=== PATIENT | female | born 1965 | race Caucasian/White ===

== ENCOUNTER 2017-12-22 10:07 | Emergency (ER) | payer BC, MEDICARE ==
[2017-12-22 10:17] VITALS: TEMP 97.9
--- NOTE | 2017-12-22 10:31 | ED.PDOC ---
History of Present Illness - General Chief Complaint: Back Pain or Injury Stated Complaint: back and head pain Time Seen by Provider: 12/22/17 10:26 - History of Present Illness Initial Comments: patient comes in today from the senior living after a fall. She was in the shower and patient states that she fell to the floor. The nurse's aide stated she gently laid down the patient but the patient states she fell. Her hair was in a scrunchy at the base of her head and it did pull when she fell. She did hit the back of her head hurting her head and the midportion of her thoracic spine. She had no loss of consciousness, no vision change, no emesis. Patient is on Lovenox. The patient has muscular dystrophy and is vent dependent and has a feeding tube. Beyond that she does not have other medical problems per patient. Patient can communicate well and is alert and oriented to person place and time. Timing/Duration: 1/2 hour Quality/Severity: moderate Back Pain Location: T-spine Method of Injury/Prior Injury: fell Improving Factors: nothing Worsening Factors: nothing Allergies/Adverse Reactions: Allergies Cephalexin Allergy (Verified 12/22/17 10:27) Erythromycin Allergy (Verified 12/22/17 10:27) Morphine Allergy (Verified 12/22/17 10:27) Home Medications: Ambulatory Orders Acetaminophen [Acetaminophen ER] 650 mg PEG Q4H PRN 12/22/17 Aspirin [Aspirin Adult Low Dose] 81 mg PO DAILY 12/22/17 Banana Flakes [Banatrol Plus] 1 marialuisa PEG TID 12/22/17 Chlorhexidine Gluconate (Mouth [Chlorhexidine Gluconate] 0.12 % MT Q6H 12/22/17 Docusate Sodium 100 mg PO BID 12/22/17 Duloxetine HCl 60 mg PEG DAILY 12/22/17 Fluticasone Propionate (Nasal) [Flonase Allergy Relief] 50 mcg NA DAILY Haloperidol [Haldol] 5 mg PEG BEDTIME 12/22/17 Haloperidol [Haldol] 7.5 mg PEG DAILY 12/22/17 Ipratropium/Albuterol [Duoneb] 3 ml NEB Q4H PRN 12/22/17 Ipratropium/Albuterol [Duoneb] 3 ml NEB TID 12/22/17 Lactulose [Kristalose] 20 gm PEG DAILY 12/22/17 Metoclopramide HCl 5 mg PEG Q8H PRN 12/22/17 Midodrine HCl 5 mg PEG TID 12/22/17 Nystatin (Topical) [Nystatin] 100,000 unit EX BID PRN 12/22/17 Ondansetron [Zofran Odt] 4 mg PO Q6H PRN 12/22/17 Pantoprazole Suspension [Protonix] 40 mg PEG BID 12/22/17 Phenol Throat Raynham [Chloraseptic Throat Raynham] 1.42 spray MT QID PRN 12/22/17 Potassium Chloride Elixir [Kaochlor Liquid] 15 ml PEG DAILY 12/22/17 Promethazine HCl 25 mg PO Q4H PRN 12/22/17 Scopolamine Patch 1.5MG [Transderm-Scop Patch] 1 ea TD Q72H 12/22/17 Review of Systems - Review of Systems Constitutional: States: no symptoms reported, weakness. Denies: fever EENTM: States: no symptoms reported Respiratory: States: no symptoms reported Cardiology: States: no symptoms reported Gastrointestinal/Abdominal: States: no symptoms reported Genitourinary: States: no symptoms reported Musculoskeletal: States: see HPI Past Medical History (General) - Patient Medical History Hx Stroke: No Hx Congestive Heart Failure: Yes Hx Diabetes: Yes Hx Other PMH: Yes - Muscular dystrophy Surgical History: cholecystectomy, pacemaker, Hysterectomy - Vaccination History Hx Influenza Vaccination: - unknown Hx Pneumococcal Vaccination: - unknown - Social History Hx Tobacco Use: Yes Hx Depression: Yes - Activities of Daily Living [facility] applicable[facility] [place] Family Medical History - Family History Mother Family History: Unknown Living Status: Unknown Physical Exam - Physical Exam General Appearance: Alert, No apparent distress Eyes, Ears, Nose, Throat Exam: PERRL/EOMI, TMs normal, pharynx normal, other - Head has bald raw area on the middle of her scalp where where her pain is, scrunchy was found under her in the portion of her back that huts with a large portion of hair that pulled out Neck Exam: non-tender, full range of motion, normal alignment, normal inspection , other - Tracheostomy tube in place on vent Cardiovascular/Respiratory: regular rate, rhythm, no M/R/G, normal peripheral pulses, no JVD, normal breath sounds, no respiratory distress Gastrointestinal/Abdominal: normal bowel sounds, non tender, soft, no organomegaly Back Exam: other - Tenderness at T7-9 with no ulcers, bruising, or gross deformity. Hair scrunchy found at that area Extremity Exam: no evidence of injury Neurologic: alert, oriented x 3 Progress - Progress Progress: 12/22/17 11:36 Patient Name: BRANDAN RIBEIRO Gender: Female Date of : 1965 Referring Physician: VICTORINA WHEELER Organization: [facility] Accession Number: [id number] Requested Date: December 22, 2017 10:27 Report Status: Final Requested Procedure: 1 Procedure Description: Head Modality: CT Findings Reporting MD: Piyush Barrera MD: Not available Dictation Time: Assembly Manager: Not available Vp Cardiovascular Date: EXAM DESCRIPTION: Head: Computed Tomography. CLINICAL HISTORY: fall on Lovenox with pain COMPARISON: Noncontrast CT scan of the thoracic spine on the same visit. TECHNIQUE: Non-helical axial scans through the skull and brain, at 5.0 mm intervals, non-contrast. Coronal and sagittal 2.0 mm reconstructions. Axial 2.5 mm reconstructions. Total Exam DLP: 967.47 mGy-cm. This exam was performed according to our departmental dose-optimization program which includes automated exposure control, adjustment of the mA and/or kV according to patient size and/or use of iterative reconstruction technique; to reduce radiation dose to as low as reasonably achievable (ALARA). FINDINGS: Radiodense extra axial mass, partially calcified, 1.7 AP x1.3 craniocaudal x 1.4 cm transverse with focal mass effect on the vertex of the right parietal lobe in a parasagittal location. Consistent with a partially calcified meningioma. No hemorrhage, no other mass-effect, and no midline shift. Minimum bilateral periventricular white matter low-density also involving the subcortical white matter of the frontal occipital and temporal lobes. No abnormal radiodense material in the brain parenchyma. Vascular calcifications anterior; physiologic calcifications in the pineal gland and choroid plexus. No effacement or displacement of the ventricles, CSF spaces, or other subdural spaces (except by meningioma). No extra axial fluid collection or hemorrhage. No gross abnormalities of the bony calvarium. Chronic mucosal thickening in the sphenoid air cells. Mastoid air cells are unremarkable. IMPRESSION: 1. No intra-axial hemorrhage, no intra-axial mass effect, no midline shift. No extra-axial hemorrhage. 1.7 cm partially calcified extra-axial mass in the parasagittal right parietal lobe impressing on the cortical sulci, most likely a meningioma. No other extra-axial or intra-axial masses. Radiology [facility] [address] [place] [address], [address] [place], [place] T [phone] F [phone] Probity - Report exported on Dec 22, 2017 11:35:52 -[id number] - Page 2 of 2 2. Periventricular leukomalacia and subcortical white matter low-density in the frontal occipital and temporal lobes. This is prominent for patient's age and could represent advanced cerebral microvascular disease or early white matter disease from migraine headaches, demyelination process, inflammation, or vasculitis. Correlate with clinical history. Comparison to previous brain imaging studies from other institutions would be helpful. 3. consider NON-EMERGENT MRI scan of the brain with diffusion imaging, without and with gadolinium IV contrast. 12/22/17 11:47 Patient Name: BRANDAN RIBEIRO Gender: Female Date of : 1965 Referring Physician: VICTORINA WHEELER Organization: [facility] Accession Number: [id number] Requested Date: December 22, 2017 10:27 Report Status: Final Requested Procedure: 1 Procedure Description: Thoracic Spine Modality: CT Findings Reporting MD: Piyush Barrera Fellow MD: Not available Dictation Time: Assembly Manager: Not available Vp Cardiovascular Date: EXAM DESCRIPTION: Thoracic Spine: Computed Tomography. CLINICAL HISTORY: fall on Lovenox with pain COMPARISON: CT scan head without IV contrast on this visit. TECHNIQUE: Spiral, axial 5.0 mm scans through the cervical spine without contrast. Bone and soft tissue algorithms. Coronal and sagittal 2.0 mm Reconstructions. Bone algorithms. Total Exam DLP: 857.36 mGy-cm. This exam was performed according to our departmental dose-optimization program which includes automated exposure control, adjustment of the mA and/or kV according to patient size and/or use of iterative reconstruction technique; to reduce radiation dose to as low as reasonably achievable (ALARA). FINDINGS: No compression fractures at any level. Trace retrolisthesis T10-11 and trace anterolisthesis T11-12. Posterior elements appear intact. No fractures of the posterior medial proximal ribs bilaterally. No significant paraspinal mass at any level. No canal or foraminal stenosis. No significant facet arthrosis more displacement at any level bilaterally. Disc space loss at T9-10 with anterior spurs. Similar findings at T11-12 and T6-7. Anterior spurs at other levels. Tracheostomy catheter customary location. Pacing leads in the right atrium and right ventricle. Marked bilateral consolidation/atelectasis bilateral paraspinal lungs from the hilum inferiorly. Also bilateral pleural thickening. No pneumothorax. No pneumomediastinum. IMPRESSION: 1. No acute thoracic spine abnormality. 2. Significant bilateral medial lower lobe atelectasis or pneumonia with pleural thickening. This is somewhat exaggerated due to lungs in expiratory phase during the scan. Tracheostomy cuff into in customary location. Pacing leads in customary location Departure - Departure Clinical Impression: Cerebral mass Contusion of head Qualifiers: Encounter type: initial encounter Contusion of head detail: scalp Qualified Code(s): S00.03XA - Contusion of scalp, initial encounter Disposition: Discharge to SNF Departure Forms: ED Discharge - Pt. Copy, Patient Portal Self Enrollment Instructions: DI for Low Back Pain Diet: resume usual diet Referrals: JAYA REDD [Primary Care Provider] - 1-2 Weeks Home Medications: Ambulatory Orders Acetaminophen [Acetaminophen ER] 650 mg PEG Q4H PRN 12/22/17 Aspirin [Aspirin Adult Low Dose] 81 mg PO DAILY 12/22/17 Banana Flakes [Banatrol Plus] 1 marialuisa PEG TID 12/22/17 Chlorhexidine Gluconate (Mouth [Chlorhexidine Gluconate] 0.12 % MT Q6H 12/22/17 Docusate Sodium 100 mg PO BID 12/22/17 Duloxetine HCl 60 mg PEG DAILY 12/22/17 Fluticasone Propionate (Nasal) [Flonase Allergy Relief] 50 mcg NA DAILY Haloperidol [Haldol] 5 mg PEG BEDTIME 12/22/17 Haloperidol [Haldol] 7.5 mg PEG DAILY 12/22/17 Ipratropium/Albuterol [Duoneb] 3 ml NEB Q4H PRN 12/22/17 Ipratropium/Albuterol [Duoneb] 3 ml NEB TID 12/22/17 Lactulose [Kristalose] 20 gm PEG DAILY 12/22/17 Metoclopramide HCl 5 mg PEG Q8H PRN 12/22/17 Midodrine HCl 5 mg PEG TID 12/22/17 Nystatin (Topical) [Nystatin] 100,000 unit EX BID PRN 12/22/17 Ondansetron [Zofran Odt] 4 mg PO Q6H PRN 12/22/17 Pantoprazole Suspension [Protonix] 40 mg PEG BID 12/22/17 Phenol Throat Raynham [Chloraseptic Throat Raynham] 1.42 spray MT QID PRN 12/22/17 Potassium Chloride Elixir [Kaochlor Liquid] 15 ml PEG DAILY 12/22/17 Promethazine HCl 25 mg PO Q4H PRN 12/22/17 Scopolamine Patch 1.5MG [Transderm-Scop Patch] 1 ea TD Q72H 12/22/17 Additional Instructions: patient has raw area to the scalp were hair was pulled on falling, monitor area for ulceration. 1.7 cm mass most likely meningioma will need a follow up MRI or Neuro consult
--- NOTE | 2017-12-22 11:34 | CT ---
EXAM DESCRIPTION: Head: Computed Tomography. CLINICAL HISTORY: fall on Lovenox with pain COMPARISON: Noncontrast CT scan of the thoracic spine on the same visit. TECHNIQUE: Non-helical axial scans through the skull and brain, at 5.0 mm intervals, non-contrast. Coronal and sagittal 2.0 mm reconstructions. Axial 2.5 mm reconstructions. Total Exam DLP: 967.47 mGy-cm. This exam was performed according to our departmental dose-optimization program which includes automated exposure control, adjustment of the mA and/or kV according to patient size and/or use of iterative reconstruction technique; to reduce radiation dose to as low as reasonably achievable (ALARA). FINDINGS: Radiodense extra axial mass, partially calcified, 1.7 AP x1.3 craniocaudal x 1.4 cm transverse with focal mass effect on the vertex of the right parietal lobe in a parasagittal location. Consistent with a partially calcified meningioma. No hemorrhage, no other mass-effect, and no midline shift. Minimum bilateral periventricular white matter low-density also involving the subcortical white matter of the frontal occipital and temporal lobes. No abnormal radiodense material in the brain parenchyma. Vascular calcifications anterior; physiologic calcifications in the pineal gland and choroid plexus. No effacement or displacement of the ventricles, CSF spaces, or other subdural spaces (except by meningioma). No extra axial fluid collection or hemorrhage. No gross abnormalities of the bony calvarium. Chronic mucosal thickening in the sphenoid air cells. Mastoid air cells are unremarkable. IMPRESSION: 1. No intra-axial hemorrhage, no intra-axial mass effect, no midline shift. No extra-axial hemorrhage. 1.7 cm partially calcified extra-axial mass in the parasagittal right parietal lobe impressing on the cortical sulci, most likely a meningioma. No other extra-axial or intra-axial masses. 2. Periventricular leukomalacia and subcortical white matter low-density in the frontal occipital and temporal lobes. This is prominent for patient's age and could represent advanced cerebral microvascular disease or early white matter disease from migraine headaches, demyelination process, inflammation, or vasculitis. Correlate with clinical history. Comparison to previous brain imaging studies from other institutions would be helpful. 3. consider NON-EMERGENT MRI scan of the brain with diffusion imaging, without and with gadolinium IV contrast. Electronically signed by: Piyush Barrera MD 12/22/2017 11:33 AM CDT
--- NOTE | 2017-12-22 11:46 | CT ---
EXAM DESCRIPTION: Thoracic Spine: Computed Tomography. CLINICAL HISTORY: fall on Lovenox with pain COMPARISON: CT scan head without IV contrast on this visit. TECHNIQUE: Spiral, axial 5.0 mm scans through the cervical spine without contrast. Bone and soft tissue algorithms. Coronal and sagittal 2.0 mm Reconstructions. Bone algorithms. Total Exam DLP: 857.36 mGy-cm. This exam was performed according to our departmental dose-optimization program which includes automated exposure control, adjustment of the mA and/or kV according to patient size and/or use of iterative reconstruction technique; to reduce radiation dose to as low as reasonably achievable (ALARA). FINDINGS: No compression fractures at any level. Trace retrolisthesis T10-11 and trace anterolisthesis T11-12. Posterior elements appear intact. No fractures of the posterior medial proximal ribs bilaterally. No significant paraspinal mass at any level. No canal or foraminal stenosis. No significant facet arthrosis more displacement at any level bilaterally. Disc space loss at T9-10 with anterior spurs. Similar findings at T11-12 and T6-7. Anterior spurs at other levels. Tracheostomy catheter customary location. Pacing leads in the right atrium and right ventricle. Marked bilateral consolidation/atelectasis bilateral paraspinal lungs from the hilum inferiorly. Also bilateral pleural thickening. No pneumothorax. No pneumomediastinum. IMPRESSION: 1. No acute thoracic spine abnormality. 2. Significant bilateral medial lower lobe atelectasis or pneumonia with pleural thickening. This is somewhat exaggerated due to lungs in expiratory phase during the scan. Tracheostomy cuff into in customary location. Pacing leads in customary location. Electronically signed by: Piyush Barrera MD 12/22/2017 11:45 AM CDT
[2017-12-22 12:04] VITALS: BP 123/74; O2SAT 96
== END 2017-12-22 12:04 ==
LOC: ER 10:07
DX: S00.03XA Contusion of scalp, initial encounter (principal); R22.0 Localized swelling, mass and lump, head; I50.9 Heart failure, unspecified; E11.9 Type 2 diabetes mellitus without complications; M62.50 Muscle wasting and atrophy, not elsewhere classified, unspecified site; Z95.0 Presence of cardiac pacemaker; Z79.82 Long term (current) use of aspirin; Z99.11 Dependence on respirator [ventilator] status; Z93.1 Gastrostomy status; W18.2XXA Fall in (into) shower or empty bathtub, initial encounter; Y93.E1 Activity, personal bathing and showering; Y92.121 Bathroom in nursing home as the place of occurrence of the external cause